=== PATIENT | male | born 1950 | race Caucasian/White ===

== ENCOUNTER 2016-04-13 12:23 | Day surgery (SDC) | payer MEDICARE, OTHER ==
[~2016-04-13] VITALS: Ht 177.8 cm; Wt 100.0 kg
[~2016-04-13 12:23] MED LIST: 0.9% Sodium Chloride 1,000 ML IV SCH; OMEP40CA25 PO; Sodium Chloride LOK Flush 10 mL Syringe IV PRN; TUMS PO; fentaNYL-PF 50 mCg/mL 2 mL Inj IVPUSH PRN
[2016-04-13] MEDS ORDERED: fentaNYL-PF 50 mCg/mL 2 mL Inj ONE (12:24)
[2016-04-13] MEDS ORDERED: Ketamine 10 mg/mL 20 mL Inj ONE (12:24)
[2016-04-13] MEDS ORDERED: Propofol 10,000 mCg/mL 20 mL Inj ONE (12:24)
[2016-04-13 12:54] VITALS: BP 144/83; PULSE 51; RESP 16; O2SAT 96
[2016-04-13] MEDS ORDERED: FAMO20T PO (12:54)
[2016-04-13] MEDS ORDERED: Lactated Ringer's 1,000 ML IV ONE ×2 (12:59→13:32)
[2016-04-13] MEDS ORDERED: Lactated Ringer's 500 ML IV PRN (13:32)
[2016-04-13] MEDS ORDERED: Lactated Ringer's 1,000 ML IV SCH ×2 (13:32)
[2016-04-13] MEDS ORDERED: MetoCLOpramide 5 mg/mL 2 mL Inj IVPUSH PRN (13:35)
[2016-04-13] MEDS ORDERED: Ondansetron 2 mg/mL 2 mL Inj IVPUSH PRN ×2 (13:35)
[2016-04-13] MEDS ORDERED: Labetalol 5 mg/mL 4 mL Inj IV PRN (13:35)
[2016-04-13] MEDS ORDERED: fentaNYL-PF 50 mCg/mL 2 mL Inj IVPUSH PRN (13:35)
[2016-04-13] MEDS ORDERED: Dexamethasone 4 mg/mL Inj IVPUSH PRN (13:35)
[2016-04-13] MEDS ORDERED: HYDROmorphone 1 mg/mL Inj IVPUSH PRN (13:35)
[2016-04-13] MEDS ORDERED: Atropine 0.4 mg/mL Inj IVPUSH PRN (13:35)
[2016-04-13] MEDS ORDERED: EPHEDrine Sulfate 50 mg/mL Inj IVPUSH PRN (13:35)
[2016-04-13] MEDS ORDERED: Phenylephrine 10,000 mCg/mL Inj IVPUSH PRN (13:35)
--- NOTE | 2016-04-13 13:35 | PCM.HPANE ---
Patient Data Date of Service: Apr 13, 2016 Surgeon Admitting Provider: Attending Provider:Manuel Wagoner MD Primary Care Physician:Bailey Villagran PA-C Other Provider: Reason for Visit Personal History Of Barretts Esophagus Ht/WT & BMI Height (Feet): 5 Height (Inches): 10 Weight (Kilograms): 100 Body Mass Index 31.00 Allergies Coded Allergies: No Known Allergies (Unverified , 04/13/16) Past Anesthesia History Anesthesia History: Denies:: Abnormal Airway, Anesthesia Reactions, Difficult Intubation, Fam Anesthesia Reaction, Fam Malignant Hypertherm, Malignant Hyperthermia Diabetes History Hx Diabetes?: No MRSA MRSA: No Medications Reported Medications Famotidine (Pepcid)20 Mg [id number] Mg PO TID 04/13/16 Discontinued Reported Medications Omeprazole-Expunged Drug, Do Not Renew! 40 Mg Capsule.dr40 Mg PO DAILY Ref 0 04/22/13 Calcium Carbonate-Expunged Drug, Do Not Renew (Tums Chewable-Expunged Drug, Do Not Renew!)500 Mg [id number] Mg PO PRN PRN For Indigestion 04/22/13 History HEENT History: Positive for:: Hearing Problem Denies:: Abnormal Airway Difficult Intubation Dysphagia Hx of Heart Problems?: No Cardiovascular History: Denies:: AICD Atrial Fibrillation Chest Pain Hypertension Pacemaker Valvular Heart Disease Hx of Respiratory Problem?: No Respiratory History: Denies:: Asthma COPD Cough Hemoptysis Pneumonia Tuberculosis Neurological History: Denies:: CVA Hx of GI Problems?: No Gastrointestinal History: Positive for:: Gastroesphageal Reflux (gerd) Denies:: Cirrhosis Diverticulitis Hiatal Hernia Rectal Bleeding Musculoskeletal History: Denies:: Joint Replacement Psycho Social History: Positive for:: Anxiety Hx Depression Hx Surgeries?: Yes (achilles repair, cartilage removed from R knee) Hx Any Other Health Problems?: Yes Hx Diabetes: No Hx Alcohol Use: Yes (1 beer/ week) Stop/Bang Treated for Sleep Apnea?: No Do You Have a CPAP Machine?: No S-Snoring: Do You Snore Loudly: No T-Tired: feel tired, fatigued: No O-Obsered: Observed not breath: No P-Blood Pressure: treated: No B- Body Mass Index > 35 kg/m2: Yes A- Age over 50: Yes N- Neck Large Circumference: Yes G- Gender Male: Yes BIA Total Score: 4 BIA Risk Assessment: Low Risk, <3 Yes BIA Category 2: Yes Risk Assessment Category Category 1A: Patient has history of documented sleep apnea, and HAS NOT received any narcotic, sedative or anesthesia administration during this stay. Category 1B: Patient has history of documented sleep apnea, and HAS received any narcotic , sedative or anesthesia administration during this stay Category 2: Patient has SUSPECTED Obstructive Sleep Apnea, and HAS received any narcotic , sedative or anesthesia administration during this stay. Category 3: Patient has SUSPECTED Obstructive Sleep Apnea and HAS NOT received narcotic, sedative or anesthesia administration during this stay. Category 4: Outpatient in Procedural Areas with known sleep apnea or who screen positive for High Risk via the STOP/BANG questionnaire. Exam Exam Vital Signs Vital Signs Date Time Temp Pulse Resp B/P Pulse Ox O2 Delivery O2 Flow Rate FiO2 04/13/16 12:54 36.3 51 16 144/83 96 Room Air General Appearance: Alert, Oriented X3, Cooperative, No Acute Distress HEENT/AIRWAY: MP 2 Lungs: Clear to Auscultation, Normal Air Movement Heart: Normal S1, Normal S2 Plan Impression Patient chart reviewed, patient interviewed and anesthestic plan with risks, benefits, and alternatives discussed, and informed consent obtained. NPO Status: >8* ASA Physical Status: ASA2 Mod Systemic Disease Anesthetic Plan: MAC Bene/Risks/Altern/Consents: Yes HP Complete Prior to Induction: Yes Christiano Roy DO Apr 13, 2016 13:35
--- NOTE | 2016-04-13 14:04 | PCM.ANEP1 ---
Post Anesthesia Phase 1 PACU Phase 1 Assessment Date of Service: Apr 13, 2016 Vital Signs Vital Signs Date Time Temp Pulse Resp B/P Pulse Ox O2 Delivery O2 Flow Rate FiO2 04/13/16 12:54 36.3 51 16 144/83 96 Room Air Level of Alertness: Sleepy, easy to arouse HUI's with Equal Strength: Yes Pain: No Nausea or Vomiting: No Oxygen Delivery: Room Air Lungs: Clear to Auscultation, Normal Air Movement Dermatome Level: Full Sensation Christiano Roy DO Apr 13, 2016 14:04
[2016-04-13 14:05] VITALS: BP 120/73; PULSE 54; RESP 16; O2SAT 95
[2016-04-13 14:15] VITALS: BP 121/82; PULSE 55; RESP 16; O2SAT 95
--- NOTE | 2016-04-13 18:08 | PCM.ANEP2 ---
Post Anesthesia Evaluation ASA/CMS Post Anesthesia Date of Service: Apr 13, 2016 VS in Patient's Normal Range?: Yes Resp Stable; Airway Patent?: Yes CV Function & Hydration Stable: Yes Mental Status Recovered?: Yes Pain control Satisfactory?: Yes N/V Control Satisfactory?: Yes Christiano Roy DO Apr 13, 2016 18:08
--- NOTE | 2016-04-14 01:06 | ENDO ---
[address] [address] ENDOSCOPY PROCEDURE PATIENT: FELISHA HOFFMAN : 1950 MR#: [id number] ADMIT: 04/13/2016 JOB ID: [id number] DATE OF PROCEDURE: 04/13/2016 PRIMARY PROVIDER: Bailey Anderson PA-C. PROCEDURE: Esophagogastroduodenoscopy with biopsies. INDICATIONS: A 65-year-old male with reflux, hiatal hernia and short-segment nondysplastic Black's, returning overdue for surveillance. EQUIPMENT: GIF-H180J. SEDATION: Monitored anesthesia as provided by Dr. Christiano Roy. COMPLICATIONS: None identified. PROCEDURE INFORMATION: After the risks and benefits were explained, written and verbal informed consent was obtained. The patient was brought into the endoscopy suite and placed into the left lateral decubitus position. Sedation was achieved as above. Scope introduced into the mouth through the bite block and advanced under direct visualization to the duodenum. The scope was slowly withdrawn to carefully examine the mucosa for any defects or lesions. Retroflexed views were accomplished in the stomach. The stomach was decompressed. The scope removed from the patient who tolerated the procedure well. FINDINGS: 1. Duodenum: Very sharp angle from D1 into D2. We did not attempt to traverse all the way into D2 based on the technical challenges. Otherwise, no mucosal defect or abnormality appreciated. 2. Stomach: No outlet obstruction. No ulcers. No mass lesions. Mild gastropathy seen and biopsies were taken for exclusion of Helicobacter or other pathology. Retroflexed views of the LES disclosed sliding hiatal hernia. 3. Esophagus: The diaphragmatic pinchcock was judged to be at about 38 cm from the incisors. The GEJ was at approximately 36 cm from the incisors to maybe 35 cm from the incisors. Inflammation appeared to extend all the way from the GEJ up to about 33 in the form of numerous erosions. There were additionally some obvious ulcerations, especially in the two o'clock tongue of probable Black's. This area was targeted for histopathology. ENDOSCOPIC DIAGNOSES: 1. Ulcerative esophagitis. 2. Hiatal hernia. 3. Short tongue Black's. 4. Gastropathy. RECOMMENDATIONS: 1. Await histopathology. 2. The patient is encouraged to convert over to pantoprazole 40 mg daily, use it twice a day for the first week. 3. Repeat esophagogastroduodenoscopy in six weeks time to confirm esophagitis healing. Then if nondysplastic Black's is confirmed, a repeat EGD would be appropriate for about three years' time.
--- NOTE | 2016-04-16 14:08 | PATH ---
SURGICAL PATHOLOGY Attending Physician:Tono Fuller CASE STATUS: Signed Out PATIENT NAME: FELISHA HOFFMAN PID: [id number] : 1950 DATE COLLECTED:04/13/2016 00:00 SPECIMEN: 1: Gastric, Biopsy 2: Esophagus, Biopsy CLINICAL HISTORY: 1).GASTRIC BIOPSY 2).DISTAL ESOPHAGUS BIOPSY FINAL DIAGNOSIS: 1.GASTRIC BIOPSY: BODY-TYPE MUCOSA WITH NO DIAGNOSTIC ALTERATIONS. Negative for Helicobacter organisms. Negative for intestinal metaplasia. Negative for dysplasia and malignancy. 2.DISTAL ESOPHAGUS BIOPSY: SQUAMOCOLUMNAR MUCOSA WITH MILD ACTIVE INFLAMMATION. POSITIVE FOR INTESTINAL METAPLASIA BY ALCIAN BLUE STAIN. Negative for dysplasia and malignancy. ICD10 code K22.70 GROSS DESCRIPTION: The specimen is received in two formalin filled containers labeled with the patient's name. 1). The specimen is sublabeled "gastric" and consists of 2 portions of tissue which aggregate to 0.4 x 0.3 x 0.2 CM. The specimen is entirely submitted in cassette 1A. 2). The specimen is sublabeled "distal esophagus" and consists of a 0.2 x 0.2 x 0.2 CM portion of tissue which is entirely submitted in cassette 2A. 04/14/2016 DAC MICRO DESCRIPTION: 2. Sections are of squamocolumnar mucosa with mild active inflammation. Possible goblet cells are identified on H&E stains. An Alcian blue stain is performed to further evaluate for goblet cells. The Alcian blue stain is positive for scattered goblet cells, consistent with intestinal metaplasia. The positive control slide stains appropriately. ICD-9 CODES: CPT CODES: 1: 04686 2: 89101, 70709 Electronically Signed Out Dora Orozco MD [facility] [address], [place] [address] Technical component performed at [facility], [facility] [address], [place], [address]
== END 2016-04-13 23:59 | disposition home or self-care (01) ==
LOC: END 12:23
PROVIDERS: ATTEND Internal Medicine Gastroenterology
DX: K22.70 Barrett's esophagus without dysplasia (principal); K44.9 Diaphragmatic hernia without obstruction or gangrene; K31.9 Disease of stomach and duodenum, unspecified
CPT/HCPCS: 43239; J3010; J7120

== ENCOUNTER 2016-06-23 08:20 | Day surgery (SDC) | payer MEDICARE, OTHER ==
[~2016-06-23] VITALS: Ht 177.8 cm; Wt 99.8 kg
[~2016-06-23 08:20] MED LIST changes: -0.9% Sodium Chloride 1,000 ML IV SCH; +FAMO20T PO; +Lactated Ringer's 1,000 ML IV ONE; -OMEP40CA25 PO; -Sodium Chloride LOK Flush 10 mL Syringe IV PRN; -TUMS PO; -fentaNYL-PF 50 mCg/mL 2 mL Inj IVPUSH PRN
[2016-06-23] MEDS ORDERED: Propofol 10,000 mCg/mL 20 mL Inj ONE (08:21)
[2016-06-23] MEDS ORDERED: fentaNYL-PF 50 mCg/mL 2 mL Inj ONE (08:21)
[2016-06-23 08:38] VITALS: BP 136/81; PULSE 49; RESP 16; O2SAT 96
--- NOTE | 2016-06-23 09:05 | PCM.HPANE ---
Patient Data Date of Service: June 23, 2016 Surgeon Admitting Provider: Attending Provider:Manuel Wagoner MD Primary Care Physician:Bailey Villagran PA-C Other Provider:Ale Alvares Anesthesia Reason for Visit Esophagitis Ht/WT & BMI Height (Feet): 5 Height (Inches): 10 Weight (Kilograms): 99.79 Body Mass Index 31.00 Allergies Coded Allergies: No Known Drug Allergies (Verified Allergy, Unknown, 06/19/16) Past Anesthesia History Anesthesia History: Denies:: Abnormal Airway, Anesthesia Reactions, Difficult Intubation, Fam Anesthesia Reaction, Fam Malignant Hypertherm, Malignant Hyperthermia Diabetes History Hx Diabetes?: No MRSA MRSA: No Medications Hypertension Medication: No Home Meds Incl Beta Dale: No Reported Medications Famotidine (Pepcid)20 Mg [id number] Mg PO TID 04/13/16 History History of ENT Problems?: No HEENT History: Denies:: Abnormal Airway Difficult Intubation Dysphagia Hearing Problem Denture Type: None Teeth Condition: Within Normal Limits Hx of Heart Problems?: No Cardiovascular History: Denies:: AICD Atrial Fibrillation Chest Pain Hypertension Pacemaker Valvular Heart Disease Hx of Respiratory Problem?: No Respiratory History: Denies:: Asthma COPD Cough Hemoptysis Pneumonia Tuberculosis Hx Neurologic Problems?: No Neurological History: Denies:: CVA Hx of GI Problems?: Yes Other GI Pertinent History: Black's esophagus Hx of Problems?: No Hx Musculoskeletal Problems?: No Musculoskeletal History: Denies:: Fibromyalgia Joint Replacement Psycho Social History: Denies:: Anxiety Hx Depression Hx Surgeries?: Yes (BROKEN LEFT LEG, RIGHT KNEE, ACHILLES TENDON BREAK) Hx Any Other Health Problems?: Yes Hx Diabetes: No Hx Alcohol Use: Yes (NOT MUCH. BEER ONCE A WEEK MAYBE) Stop/Bang Treated for Sleep Apnea?: No Do You Have a CPAP Machine?: No S-Snoring: Do You Snore Loudly: No T-Tired: feel tired, fatigued: No O-Obsered: Observed not breath: No P-Blood Pressure: treated: No B- Body Mass Index > 35 kg/m2: No A- Age over 50: Yes N- Neck Large Circumference: No G- Gender Male: Yes BIA Total Score: 2 BIA Risk Assessment: Low Risk, <3 Yes Risk Assessment Category Category 1A: Patient has history of documented sleep apnea, and HAS NOT received any narcotic, sedative or anesthesia administration during this stay. Category 1B: Patient has history of documented sleep apnea, and HAS received any narcotic , sedative or anesthesia administration during this stay Category 2: Patient has SUSPECTED Obstructive Sleep Apnea, and HAS received any narcotic , sedative or anesthesia administration during this stay. Category 3: Patient has SUSPECTED Obstructive Sleep Apnea and HAS NOT received narcotic, sedative or anesthesia administration during this stay. Category 4: Outpatient in Procedural Areas with known sleep apnea or who screen positive for High Risk via the STOP/BANG questionnaire. Exam Exam Vital Signs Vital Signs Date Time Temp Pulse Resp B/P Pulse Ox O2 Delivery O2 Flow Rate FiO2 06/23/16 08:38 36.1 49 16 136/81 96 Room Air General Appearance: Alert, Oriented X3, Cooperative, No Acute Distress HEENT/AIRWAY: MP 2 Lungs: Clear to Auscultation, Normal Air Movement Heart: Exam Unremarkable, Regular Rate/Rhythm, No Murmurs/Rubs/Gallops Meds/Labs/Diagnostics Admission Meds Current Medications Lactated Ringer's (Lr) 1,000 ml @ 10 mls/hr Q24H ONCE IV Last administered on 06/23/16t 08:45; Start 06/23/16 at 06:00; Stop 06/24/16 at 05:59 Plan Impression Patient chart reviewed, patient interviewed and anesthestic plan with risks, benefits, and alternatives discussed, and informed consent obtained. NPO per Anesth. Guidelines: Yes ASA Physical Status: ASA2 Mod Systemic Disease Anesthetic Plan: TIVA Bene/Risks/Altern/Consents: Yes HP Complete Prior to Induction: Yes David Burgos MD June 23, 2016 09:05
[2016-06-23 09:24] VITALS: BP 112/73; PULSE 62; RESP 14; O2SAT 93
[2016-06-23 09:36] VITALS: BP 107/76; PULSE 59; RESP 12; O2SAT 95
--- NOTE | 2016-06-23 10:18 | ENDO ---
[address] [address] ENDOSCOPY PROCEDURE PATIENT: FELISHA HOFFMAN : 1950 MR#: [id number] ADMIT: 06/23/2016 JOB ID: [id number] PRIMARY PROVIDER: Bailey Anderson PA-C PROCEDURE: Esophagogastroduodenoscopy. INDICATIONS: A 65-year-old male with a history of nondysplastic short Black's. He had ulcerative esophagitis, and returns for evaluation to ensure ulcer healing on regular PPI. He took b.i.d. pantoprazole for one week and currently is on 40 mg once daily. EQUIPMENT: GIF-H180-J. SEDATION: Monitored anesthesia as provided by Dr. David Burgos. COMPLICATIONS: None identified. PROCEDURE INFORMATION: After the risks and benefits were explained, written and verbal informed consent was obtained. The patient was brought into the endoscopy suite and placed into the left lateral decubitus position. Sedation was achieved using the above-stated medications with the addition of oxygen via nasal cannula. The scope was introduced into the mouth through the bite block, and advanced to the first portion of the duodenum. The scope was slowly withdrawn to carefully examine the mucosa for any defects or lesions. Retroflexed views were accomplished in the stomach. The stomach was decompressed, the scope removed from the patient who tolerated the procedure well. FINDINGS: 1. First portion of the duodenum was normal. Again, the patient had an incredibly sharp corner from D1 to D2, and we aborted efforts to get around the corner. No obstructing mass lesions or stenoses identified. 2. Stomach: No outlet obstruction. No significant gastric pathology identified. Mild gastropathy. Retroflexed views disclosed hiatal hernia once again. 3. Esophagus: The GE junction was at 37 cm from the incisors. The patient had linear tongues of Black's once again identified. In the 2 o'clock location, there was evidence of some mild persistent ulceration. I did not see any signs of neoplasia or mass effect. ENDOSCOPIC DIAGNOSES: 1. Ulcerative esophagitis. 2. Black's short-segment. 3. Hiatal hernia. RECOMMENDATIONS: 1. Await histopathology. 2. The patient is encouraged to take b.i.d. PPI. 3. Repeat EGD in one year with anesthesia.
--- NOTE | 2016-06-23 16:20 | PCM.ANEP1 ---
Post Anesthesia Phase 1 PACU Phase 1 Assessment Date of Service: June 23, 2016 Vital Signs Vital Signs Date Time Temp Pulse Resp B/P Pulse Ox O2 Delivery O2 Flow Rate FiO2 06/23/16 09:36 59 12 107/76 95 Room Air 06/23/16 09:24 36.3 62 14 112/73 93 Room Air 06/23/16 08:38 36.1 49 16 136/81 96 Room Air Anesthetic Administered: TIVA Level of Alertness: Awake, talking HUI's with Equal Strength: Yes Pain: No Nausea or Vomiting: No Cardiovascular Function and Hy: Yes Oxygen Delivery: Room Air Lungs: Clear to Auscultation, Normal Air Movement Dermatome Level: Full Sensation Complications: No Follow up Care: No David Burgos MD June 23, 2016 16:20
== END 2016-06-23 23:59 | disposition home or self-care (01) ==
LOC: END 08:20
PROVIDERS: ATTEND Internal Medicine Gastroenterology
DX: K22.70 Barrett's esophagus without dysplasia (principal); K44.9 Diaphragmatic hernia without obstruction or gangrene
CPT/HCPCS: 43235; J3010; J7120